=== PATIENT | female | born 1990 | race Two or more races ===

== ENCOUNTER 2021-04-02 13:45 | Inpatient (IN) | payer OTHER ==
[~2021-04-02] VITALS: Ht 172.7 cm; Wt 78.9 kg
[2021-04-21] MEDS ORDERED: PRENATAL CAPLE1 EAC1 PO (07:05)
== END 2021-04-23 11:04 | disposition home or self-care (01) | DRG 807 ==
LOC: LDR 04-19 13:45 → SURG-SUITE 04-21 06:28 → LDR 04-21 06:28 → SURG-SUITE 04-21 12:01
PROVIDERS: ADMIT Obstetrics & Gynecology Maternal & Fetal Medicine; ATTEND Obstetrics & Gynecology Maternal & Fetal Medicine
PROC: 10E0XZZ Delivery of Products of Conception, External Approach (ICD-10-PCS; principal; 2021-04-21)
PROC: 0W8NXZZ Division of Female Perineum, External Approach (ICD-10-PCS; 2021-04-21)
PROC: 3E033VJ Introduction of Other Hormone into Peripheral Vein, Percutaneous Approach (ICD-10-PCS; 2021-04-21)
PROC: 4A1HXFZ Monitoring of Products of Conception, Cardiac Rhythm, External Approach (ICD-10-PCS; 2021-04-21)
DX: O80 Encounter for full-term uncomplicated delivery (principal); Z37.0 Single live birth; Z3A.40 40 weeks gestation of pregnancy; Z20.822 Contact with and (suspected) exposure to COVID-19

== ENCOUNTER 2021-04-14 13:10 | Outpatient (CLI) | payer OTHER | END 2021-04-14 13:53 | disposition home or self-care (01) | LOC: NST 13:10 | PROVIDERS: ATTEND Obstetrics & Gynecology Maternal & Fetal Medicine | DX: Z34.83 Encounter for supervision of other normal pregnancy, third trimester (principal) ==

== ENCOUNTER 2021-04-19 11:41 | Outpatient (CLI) | payer OTHER | END 2021-04-19 13:00 | disposition home or self-care (01) | LOC: NST 11:41 | PROVIDERS: ATTEND Obstetrics & Gynecology Maternal & Fetal Medicine | DX: Z34.83 Encounter for supervision of other normal pregnancy, third trimester (principal) ==

== ENCOUNTER 2023-06-22 13:45 | Inpatient (IN) | payer OTHER ==
[~2023-06-22] VITALS: Ht 172.7 cm; Wt 77.1 kg
[~2023-06-22 13:45] MED LIST: PRENATAL CAPLE1 EAC1 PO
[2023-07-08 00:51] LABS: HEMATOCRIT 33.6 % (36.0-45.00); HEMOGLOBIN 11.1 g/dL (12.0-15.00); MEAN CELL VOLUME 86.9 fL (80.00-100.00); MEAN CORPUSCULAR HEMOGLOBIN 28.8 pg (27.00-32.0); MEAN CORPUSCULAR HGB CONC 33.1 g/dl (32.0-36.0); PLATELET COUNT 171 K/uL (150-450); RED BLOOD COUNT 3.86 M/uL (4.00-6.00); RED CELL DISTRIBUTION WIDTH 13.9 % (11.5-14.5)
[2023-07-08 01:20] LABS: INR 0.96; PARTIAL THROMBOPLASTIN TIME 25.2 SECONDS (22.0-34.0); PROTHROMBIN TIME 10.1 SECONDS (9.0-11.5)
[2023-07-08 01:25] LABS: ALBUMIN 2.8 gm/dL (3.4-5.0); BILIRUBIN TOTAL 0.33 mg/dL (0.3-1.2); CALCIUM 9.3 mg/dL (8.5-10.1); CREATININE SERUM 0.77 mg/dL (0.55-1.02); GFR 86.33; GLOBULINA 3.5 G/DL (2.4-3.5); POTASSIUM 3.89 mEq/L (3.5-5.1); TOTAL PROTEIN 6.3 gm/dL (6.4-8.2)
[2023-07-08 06:21] LABS: ABG PH 7.382 (7.35-7.45); ABG PO2 43.6 mmHg (80-100); ABG pCO2 38.7 mmHg (35-45); SaO2 78.1 %
[2023-07-08 06:22] LABS: BASE EXCESS -2.2 mmol/l; BICARBONATE 22.5 mmol/l (23-25); Tco2 23.7 mmol/l; o2 21 %
== END 2023-07-09 16:30 | disposition home or self-care (01) | DRG 807 ==
LOC: LDR 07-07 23:20 → OB/GYN 07-08 01:56
PROVIDERS: ADMIT Obstetrics & Gynecology Maternal & Fetal Medicine; ATTEND Obstetrics & Gynecology Maternal & Fetal Medicine
PROC: 4A1HXCZ Monitoring of Products of Conception, Cardiac Rate, External Approach (ICD-10-PCS; 2023-07-07)
PROC: 10E0XZZ Delivery of Products of Conception, External Approach (ICD-10-PCS; principal; 2023-07-08)
PROC: 0KQM0ZZ Repair Perineum Muscle, Open Approach (ICD-10-PCS; 2023-07-08)
DX: O70.1 Second degree perineal laceration during delivery (principal); Z37.0 Single live birth; Z3A.39 39 weeks gestation of pregnancy; Z20.822 Contact with and (suspected) exposure to COVID-19

== ENCOUNTER → 2023-07-04 | Outpatient (CLI) | payer OTHER | END | disposition home or self-care (01) | LOC: NST 10:27 | PROVIDERS: ATTEND Obstetrics & Gynecology Maternal & Fetal Medicine | DX: Z34.83 Encounter for supervision of other normal pregnancy, third trimester (principal) ==